=== PATIENT | male | born 1955 | race Caucasian/White ===

== ENCOUNTER 2023-01-07 08:15 | Inpatient (IN) ==
[2023-01-07] MEDS ORDERED: PANTOprazole 40 MG in SYRINGE 0 ML IV ONE (08:48)
[2023-01-07] MEDS ORDERED: SODIUM CHLORIDE 0.9% 1,000 ML IV STA (08:48)
--- NOTE | 2023-01-07 08:53 | Emergency Department Note ---
Impression & Plan GI bleed, Colitis ED Provider Note Diagnosis: GI bleed, colitis Disposition: Admission CHIEF COMPLAINT: GI bleed HPI: Patient is a 67-year-old male presenting with abdominal pain and GI bleed. Patient states his symptoms started last evening. Patient complains of left lower quadrant abdominal pain. Patient states he had 2 bowel movements with bright red blood present. Patient states his only anticoagulant is baby aspirin. Patient states the left lower quadrant pain was worse but is now very dull and 1-2 out of 10. Patient denies any nausea or vomiting. Patient denies any fevers. Patient states his only previous abdominal surgery was appendectomy. Patient states that he had a colonoscopy performed in September of this year where they removed polyps. PAST MEDICAL HISTORY: See Below PAST SURGICAL HISTORY: See Below SOCIAL HISTORY: See Below HOME MEDICATIONS: See Below ALLERGIES: See Below VITALS: See Below PHYSICAL EXAMINATION: GENERAL: Well appearing, well nourished, NAD, non-toxic. EYE EXAM: Normal conjunctiva. OROPHARYNX: Moist mucus membranes. Grossly normal dentition. NECK: Supple, LUNGS: Clear to auscultation. Normal chest wall mechanics. HEART: NSR ABDOMEN: Abdomen soft, mild tenderness left lower quadrant BACK: No CVA TTP. SKIN: No rashes and no bruising. UPPER EXTREMITIES: Upper extremities are grossly normal LOWER EXTREMITIES: Grossly normal, no edema. NEURO EXAM: A&O x3,, normal speech, moves all 4 extremities PSYCH: Cooperative MEDICAL DECISION MAKING: Reviewed external documents: [employer] note 10/20/2022 wrist injury History obtained from: Patient ER Course: Patient is a 67-year-old male presenting with left lower quadrant abdominal pain. Patient states that his last 2 bowel movements he has had bright red blood present. Patient states his only blood thinner is aspirin. Patient states continued left lower quadrant pain with nausea. Patient on rectal exam today has bright red blood and Hemoccult positive. Patient's hemoglobin starts out stable at 16. Patient has no tachycardia or hypotension. Patient CT scan of abdomen pelvis shows colitis and due to the bright red blood he was started on Cipro and Flagyl. Patient's case discussed with hospitalist service accepts patient further treatment and evaluation. Labs (independently interpreted) are significant for: Hemoglobin 16 Medications given: Normal saline bolus Consultants: Hospitalist service Triage Nursing notes reviewed and agree them. Vital Signs: reviewed and remarkable for: no significant abnormalities Past Med/Surg History Medical History (Updated 01/07/23 @ 13:[address] DO) HLD (hyperlipidemia) GERD (gastroesophageal reflux disease) No pertinent past medical history Surgical History (Updated 01/07/23 @ 11:53 by Crystal Mendoza PA-C) Hx of lymph node biopsy Left submandibular 02/21/2009 Hx of shoulder surgery 1999 S/P appendectomy 1979 Family History (Updated 01/07/23 @ 11:55 by Crystal Mendoza PA-C) Mother Lymphoma Father Pancreatic cancer Heart disease Social History Smoking Status: Former smoker Preferred Language: Kinyarwanda Feels Safe at Home: Yes Allergies Allergies Allergy/AdvReac Type Severity Reaction Status Date / Time Yglkars-XSH-KeA Reductase Allergy Severe Leg cramps Unverified 01/07/23 11:34 Inhibitor Penicillins Allergy Unknown . Verified 01/07/23 11:34 Home Meds Home Medications Medication Instructions Recorded Confirmed aspirin 81 mg tablet 81 mg PO QAM 01/07/23 01/07/23 ezetimibe 10 mg tablet 10 mg PO QAM 01/07/23 01/07/23 omeprazole 20 mg capsule,delayed 20 mg PO QAM 01/07/23 01/07/23 release Results & Data (ED) Vital Signs Vital Signs - 24 hr 01/07/23 08:18 01/07/23 09:18 01/07/23 09:21 Temperature 36.5 C Temperature Source Temporal Artery Scan Pulse Rate 79 70 Pulse Rate [Apical] 73 Respiratory Rate 20 18 Respiratory Effort / Characteristics Non-Labored Spontaneous Respiratory Depth Normal Respiratory Pattern Regular Blood Pressure 157/101 H Blood Pressure Mean 119 Blood Pressure Position Sitting Pulse Oximetry 95 98 Oxygen Delivery Method Room Air Room Air Sepsis Recent Fever Within 48 Hours No Sepsis New/Unexplained Change in Mental Status No Sepsis Action Taken by Nursing No Action Required Laboratory Data 01/07/23 08:59 01/07/23 08:59 Lab Results 01/07/23 Range/Units 08:59 WBC 6.82 (4.8-10.8) K/ul RBC 5.45 (4.70-6.10) M/uL Hgb 16.0 (14.0-18.0) g/dl Hct 48.0 (42.0-52.0) % MCV 88.1 (80.0-100.0) fL MCH 29.4 (25.0-34.0) pg MCHC 33.3 (32.0-36.0) g/dL RDW Std Deviation 46.0 (36.4-46.3) fL RDW Coeff of Nina 14.4 (11.5-14.5) % Plt Count 165 (130-400) K/uL MPV 11.1 (9.4-12.4) fL Immature Gran % (Auto) 0.4 % Neut % (Auto) 63.9 % Lymph % (Auto) 23.6 % [place] % (Auto) 8.7 % Eos % (Auto) 2.8 % Baso % (Auto) 0.6 % Neut # (Auto) 4.36 (1.40-6.50) K/uL Lymph # (Auto) 1.61 (1.20-3.40) K/uL [place] # (Auto) 0.59 (0.11-0.59) K/uL Eos # (Auto) 0.19 (0.00-0.50) K/uL Baso # (Auto) 0.04 (0.00-0.20) K/uL Immature Gran # (Auto) 0.03 (0.01-0.20) K/uL PT 10.3 (9.0-12.0) Seconds INR 0.9 (0.9-1.1) Sodium 138 (136-145) mmol/L Potassium 4.1 (3.5-5.1) mmol/L Chloride 107 (98-107) mmol/L Carbon Dioxide 25 (21-32) mmol/L Anion Gap 6 (3-11) BUN 16 (6-23) mg/dl Creatinine 1.02 (0.6-1.4) mg/dl Est Cr Clr Drug Dosing 71.2 ml/min Est GFR ( Amer) 88.4 ml/min Est GFR (Non-Af Amer) 76.2 ml/min BUN/Creatinine Ratio 15.7 (10-20) Glucose 90 (70-99(Fasting)) mg/dl Calcium 9.3 (8.6-10.3) mg/dl Total Bilirubin 0.8 (0.2-1.0) mg/dl AST 21 (13-39) U/L ALT 17 (7-52) U/L Alkaline Phosphatase 58 (34-104) U/L Total Protein 6.9 (6.0-8.3) gm/dl Albumin 4.2 (3.4-5.0) gm/dl Globulin 2.7 (2.5-4.0) gm/dl Albumin/Globulin Ratio 1.6 (0.9-2) Lipase 10 L (11-82) U/L Administered Medications Ciprofloxacin (Cipro / D5w) 400 mg in 200 mls @ 100 mls/hr IV NOW STA; Protocol Stop: 01/07/23 13:27 Last Admin: 01/07/23 11:41 Dose: 100 mls/hr Documented By: MAKENZIE Discontinued Medications Sodium Chloride (Nss) 1,000 mls @ 999 mls/hr IV .Q1H1M STA Stop: 01/07/23 09:48 Last Infusion: 01/07/23 10:07 Dose: Infused Documented By: Admin: 01/07/23 09:05 Dose: 999 mls/hr Documented By: MAKENZIE Pantoprazole Sodium 40 mg/ (Syringe) 10 mls @ 5 mls/min IV NOW ONE Stop: 01/07/23 08:49 Last Admin: 01/07/23 09:05 Dose: 5 mls/min Documented By: MAKENZIE Metronidazole (Flagyl) 500 mg in 100 mls @ 100 mls/hr IV NOW STA; Protocol Stop: 01/07/23 12:27 Last Infusion: 01/07/23 12:59 Dose: Infused Documented By: Admin: 01/07/23 11:41 Dose: 100 mls/hr Documented By: MAKENZIE Ioversol (Optiray 320 100ml) 93 ml IV ONCE ONE Stop: 01/07/23 10:11 Last Admin: 01/07/23 10:11 Dose: 93 ml Documented By: JOE Imaging Data Radiologist's Impression: Abdomen/Pelvis CT 01/07/23 08:48 CT OF THE ABDOMEN AND PELVIS WITH CONTRAST CLINICAL HISTORY: GI bleed, BRB per rectum x's 2 episodes COMPARISON STUDY: None. TECHNIQUE: Following IV administration of 93 mL of Optiray, axial images of the abdomen and pelvis were obtained from the lung bases to the proximal femurs. Images were reviewed in the axial, sagittal, and coronal planes. IV contrast was administered without complication. Automated exposure control was utilized for the study. A dose lowering technique was utilized adhering to the principles of ALARA. CT DOSE: 1171.81 mGy.cm FINDINGS: Lung bases are unremarkable. No pneumatosis, free air or portal venous gas is present. Subcentimeter lateral segment hepatic lesion is too small to characterize but favors a cyst. A few additional tiny hepatic lesions are likely benign. There is no biliary or pancreatic ductal dilatation. There are calcified granulomas within the spleen. Adrenal glands and kidneys are unremarkable. There is no hydronephrosis. There are no urinary calculi. The appendix is not visualized. There is no evidence for a bowel obstruction. There is mild wall thickening of the distal transverse colon, splenic flexure of the colon, descending colon and the sigmoid colon. There may be subtle stranding adjacent to the sigmoid colon. There is no fluid collection to suggest an abscess. There is no lymphadenopathy. Major vasculature is patent. There is moderate plaque within the abdominal aorta and branch vessels. No intraluminal bowel contrast is identified to suggest active GI bleed by CT on this study. IMPRESSION: 1. Mild left colon wall thickening with subtle pericolonic stranding. This favors a nonspecific colitis. Less likely, the findings could be related to underdistention. 2. No bowel obstruction. No intraluminal contrast to suggest active GI bleed by CT. ACT 112: Negative or not required by law. Electronically signed by: Dawson Brunson M.D. 01/07/2023 10:38 AM Discharge Plan Visit Data Chief Complaint: GI Assessment Stated Complaint: BLOODY STOOL,DOC REF ED Provider: Kyler Lane Discharge Problem: GI bleed, Colitis Forms Stand Alone Forms: [facility] [employer] Prescriptions Prescriptions: No Action omeprazole 20 mg capsule,delayed release(DR/EC) 20 mg PO QAM aspirin 81 mg Tablet 81 mg PO QAM ezetimibe 10 mg tablet 10 mg PO QAM Referrals Referrals: Dianne Underwood MD [Primary Care Provider] -
[2023-01-07 09:40] LABS: Basophils # (auto) 0.04 K/uL (0.00-0.20); Basophils % (auto) 0.6 %; Eosinophils # (auto) 0.19 K/uL (0.00-0.50); Eosinophils % (auto) 2.8 %; Immature Granulocytes # (auto) 0.03 K/uL (0.01-0.20); Immature Granulocytes % (auto) 0.4 %; Lymphocytes # (auto) 1.61 K/uL (1.20-3.40); Lymphocytes % (auto) 23.6 %; Mean Corpuscular Hemoglobin 29.4 pg (25.0-34.0); Mean Corpuscular Hgb Conc 33.3 g/dL (32.0-36.0); Mean Corpuscular Volume 88.1 fL (80.0-100.0); Mean Platelet Volume 11.1 fL (9.4-12.4); Monocytes # (auto) 0.59 K/uL (0.11-0.59); Monocytes % (auto) 8.7 %; Neutrophils # (auto) 4.36 K/uL (1.40-6.50); Neutrophils % (auto) 63.9 %; Platelet Count 165 K/uL (130-400); RDW Coefficient of Variation 14.4 % (11.5-14.5); Red Blood Count 5.45 M/uL (4.70-6.10); White Blood Count 6.82 K/ul (4.8-10.8)
[2023-01-07 09:44] LABS: Albumin Globulin Ratio 1.6 (0.9-2); Albumin Level 4.2 gm/dl (3.4-5.0); BUN Creatinine Ratio 15.7 (10-20); Bilirubin,Total 0.8 mg/dl (0.2-1.0); Calcium 9.3 mg/dl (8.6-10.3); Creatinine Clr Calc Pharmacy 71.2 ml/min; Est GFR (African American) 88.4 ml/min; Est GFR (Non-African American) 76.2 ml/min; Globulin 2.7 gm/dl (2.5-4.0); Potassium 4.1 mmol/L (3.5-5.1); Total Protein 6.9 gm/dl (6.0-8.3)
[2023-01-07 09:53] LABS: INR 0.9 (0.9-1.1); Prothrombin Time 10.3 Seconds (9.0-12.0)
[2023-01-07] MEDS ORDERED: OPTIRAY 320 100ml IV ONE (10:10)
--- NOTE | 2023-01-07 10:39 | CT Scan Report ---
CT OF THE ABDOMEN AND PELVIS WITH CONTRAST CLINICAL HISTORY: GI bleed, BRB per rectum x's 2 episodes COMPARISON STUDY: None. TECHNIQUE: Following IV administration of 93 mL of Optiray, axial images of the abdomen and pelvis we re obtained from the lung bases to the proximal femurs. Images were reviewed in the axial, sagittal, and coronal planes. IV contrast was administered without complication. Automated exposure control wa s utilized for the study. A dose lowering technique was utilized adhering to the principles of ALARA . CT DOSE: 1171.81 mGy.cm FINDINGS: Lung bases are unremarkable. No pneumatosis, free air or portal venous gas is present. Subc entimeter lateral segment hepatic lesion is too small to characterize but favors a cyst. A few additi onal tiny hepatic lesions are likely benign. There is no biliary or pancreatic ductal dilatation. The re are calcified granulomas within the spleen. Adrenal glands and kidneys are unremarkable. There is no hydronephrosis. There are no urinary calculi. The appendix is not visualized. There is no evidence for a bowel obstruction. There is mild wall thickening of the distal transverse colon, splenic flexu re of the colon, descending colon and the sigmoid colon. There may be subtle stranding adjacent to th e sigmoid colon. There is no fluid collection to suggest an abscess. There is no lymphadenopathy. Lefty or vasculature is patent. There is moderate plaque within the abdominal aorta and branch vessels. No intraluminal bowel contrast is identified to suggest active GI bleed by CT on this study. IMPRESSION: 1. Mild left colon wall thickening with subtle pericolonic stranding. This favors a nonspecific colit is. Less likely, the findings could be related to underdistention. 2. No bowel obstruction. No intraluminal contrast to suggest active GI bleed by CT. ACT 112: Negative or not required by law. Electronically signed by: Dawson Brunson M.D. 01/07/2023 10:38 AM
[2023-01-07] MEDS ORDERED: CIPROFLOXACIN / D5W 400 MG/200 ML BAG IV STA (11:28)
[2023-01-07] MEDS ORDERED: metroNIDAZOLE 500 MG/100 ML BAG IV STA (11:28)
--- NOTE | 2023-01-07 11:56 | History & Physical Report ---
Date of Service January 07, 2023 Assessment & Plan (1) Colitis: (2) BRBPR (bright red blood per rectum): (3) HLD (hyperlipidemia): (4) GERD (gastroesophageal reflux disease): Plan: This is a 67-year-old male with PMHx of HLD, GERD, history of colonoscopy in September with removal of 2 polyps which are noted on outpatient epic review to be hyperplastic, who presents to the ER with acute onset of abdominal pain within the past 24 hours and development of bright red blood per rectum x2 to episodes today. He is on baby aspirin but no other form of blood thinner. Colitis GI bleed -Admit to med telemetry -Hemoglobin is 16, trend every 6 hour -Afebrile, WBC 6.82 on admission -LR at 80 mL/h for gentle hydration while he is n.p.o. -CT abdomen and pelvis reviewed showing : . Mild left colon wall thickening with subtle pericolonic stranding. This favors a nonspecific colitis. -Started on Cipro and Flagyl IV in the ER, will continue -Consult GI, patient had colonoscopy in September this year with Dr. Denton where 2 polyps were removed, hyperplastic on reports reviewed in [facility] outpatient chart personally - pantoprazole 40 mg daily IV HLD -Patient is statin intolerant, continue Zetia GERD -Continue PPI IV as above DVT PPx: teds, scds Lines: 2 PIV FEN/GI: N.p.o., LR at 80 mL/h CODE: Full code Dispo: From home, likely to remain in the hospital x 1-2 days, pending GI consultation and possible scope. History of Present Illness Chief Complaint: Abdominal pain, BRBPR Primary Care Provider: Dianne Underwood MD This is a 67-year-old male with PMHx of HLD, GERD, history of colonoscopy in September with removal of 2 polyps which are noted on outpatient epic review to be hyperplastic, who presents to the ER with acute onset of abdominal pain within the past 24 hours and development of bright red blood per rectum x2 to episodes today. He is on baby aspirin but no other form of blood thinner. Patient is here with his at bedside. States that he had 12 episodes of diarrhea yesterday, and developed some lower abdominal pain last evening. He awoke before daylight this morning with a bowel movement that had bright red blood in it. Since then he has had 3 more bowel movements with mostly bright red blood and some clotting in it. He denies any nausea, vomiting, lightheadedness or dizziness. Yesterday patient ate 2 donuts in the morning but nothing else all day. He denies any recent illnesses, consumption of raw or undercooked foods, spoiled foods, but admits that he is on well water. His denies any similar symptoms. Patient has never experienced any GI bleed like this before. Currently has slight lower abdominal pain but no other acute complaints. Allergies Allergy/AdvReac Type Severity Reaction Status Date / Time Ugbdmap-OFL-ScM Reductase Allergy Severe Leg cramps Unverified 01/07/23 11:34 Inhibitor Penicillins Allergy Unknown . Verified 01/07/23 11:34 Home Medications Medication Instructions Recorded Confirmed Type aspirin 81 mg tablet 81 mg PO QAM 01/07/23 01/07/23 History ezetimibe 10 mg tablet 10 mg PO QAM 01/07/23 01/07/23 History omeprazole 20 mg capsule,delayed 20 mg PO QAM 01/07/23 01/07/23 History release Past Med/Surg History Medical History (Updated 01/07/23 @ 12:02 by Crystal Mendoza PA-C) HLD (hyperlipidemia) GERD (gastroesophageal reflux disease) No pertinent past medical history Surgical History (Updated 01/07/23 @ 11:53 by Crystal Mendoza PA-C) Hx of lymph node biopsy Left submandibular 02/21/2009 Hx of shoulder surgery 1999 S/P appendectomy 1979 Family History (Updated 01/07/23 @ 11:55 by Crystal Mendoza PA-C) Mother Lymphoma Father Pancreatic cancer Heart disease Social History Smoking Status: Former smoker Preferred Language: Argentine Feels Safe at Home: Yes Review of Systems Review of Systems: Constitutional: No fever, sweats or chills Eyes: No diplopia, no worsening or blurred vision ENT: normal hearing, no trouble swallowing Respiratory: No cough, sputum, dyspnea at rest or on exertion Cardiovascular: No chest pain, tightness or palpitations Abdomen: As per HPI Musculoskeletal: No joint pain, calf pain, swelling Neurologic: No weakness, numbness/tingling, or balance problems Psychiatric: No anxiety or depression Skin: No rash or itch Physical Exam Physical Exam: General: awake, alert, no apparent distress Head: Normocephalic, atraumatic ENT: PERRL, EOMI, no pharyngeal exudate, mucous membranes moist Chest: Clear to auscultation, on room air, no adventitious breath sounds Cardiac: Regular rate and rhythm, no murmur, no JVD, normal peripheral pulses, good capillary refill Abdominal: NABS x 4 quadrants, soft, nondistended, minimally tender to palpation in left lower quadrant, no rebound or guarding Extremities: Normal inspection, no peripheral edema or erythema, calfs nontender to palpation Psych: Normal mood and affect Neuro: AAO x 3, strength intact bilaterally and rated 5/5, no motor deficits, speech is clear, no peripheral sensory deficits Results & Data Results & Data Vital Signs (Past 12 Hours) Vital Signs Temp Pulse Pulse Resp BP Pulse Ox O2 Del Method 01/07/23 09:21 73 18 98 Room Air 01/07/23 09:18 70 01/07/23 08:18 36.5 C 79 20 157/101 H 95 Room Air Laboratory Results 01/07/23 08:59 WBC 6.82 RBC 5.45 Hgb 16.0 Hct 48.0 MCV 88.1 MCH 29.4 MCHC 33.3 RDW Std Deviation 46.0 RDW Coeff of Nina 14.4 Plt Count 165 MPV 11.1 Immature Gran % (Auto) 0.4 Neut % (Auto) 63.9 Lymph % (Auto) 23.6 [place] % (Auto) 8.7 Eos % (Auto) 2.8 Baso % (Auto) 0.6 Neut # (Auto) 4.36 Lymph # (Auto) 1.61 [place] # (Auto) 0.59 Eos # (Auto) 0.19 Baso # (Auto) 0.04 Immature Gran # (Auto) 0.03 PT 10.3 INR 0.9 Sodium 138 Potassium 4.1 Chloride 107 Carbon Dioxide 25 Anion Gap 6 BUN 16 Creatinine 1.02 Est Cr Clr Drug Dosing 71.2 Est GFR ( Amer) 88.4 Est GFR (Non-Af Amer) 76.2 BUN/Creatinine Ratio 15.7 Glucose 90 Calcium 9.3 Total Bilirubin 0.8 AST 21 ALT 17 Alkaline Phosphatase 58 Total Protein 6.9 Albumin 4.2 Globulin 2.7 Albumin/Globulin Ratio 1.6 Lipase 10 L Diagnostic Findings Abdomen/Pelvis CT 01/07/23 08:48 CT OF THE ABDOMEN AND PELVIS WITH CONTRAST CLINICAL HISTORY: GI bleed, BRB per rectum x's 2 episodes COMPARISON STUDY: None. TECHNIQUE: Following IV administration of 93 mL of Optiray, axial images of the abdomen and pelvis were obtained from the lung bases to the proximal femurs. Images were reviewed in the axial, sagittal, and coronal planes. IV contrast was administered without complication. Automated exposure control was utilized for the study. A dose lowering technique was utilized adhering to the principles of ALARA. CT DOSE: 1171.81 mGy.cm FINDINGS: Lung bases are unremarkable. No pneumatosis, free air or portal venous gas is present. Subcentimeter lateral segment hepatic lesion is too small to characterize but favors a cyst. A few additional tiny hepatic lesions are likely benign. There is no biliary or pancreatic ductal dilatation. There are calcified granulomas within the spleen. Adrenal glands and kidneys are unremarkable. There is no hydronephrosis. There are no urinary calculi. The appendix is not visualized. There is no evidence for a bowel obstruction. There is mild wall thickening of the distal transverse colon, splenic flexure of the colon, de scending colon and the sigmoid colon. There may be subtle stranding adjacent to the sigmoid colon. There is no fluid collection to suggest an abscess. There is no lymphadenopathy. Major vasculature is patent. There is moderate plaque within the abdominal aorta and branch vessels. No intraluminal bowel contrast is identified to suggest active GI bleed by CT on this study. IMPRESSION: 1. Mild left colon wall thickening with subtle pericolonic stranding. This favors a nonspecific colitis. Less likely, the findings could be related to underdistention. 2. No bowel obstruction. No intraluminal contrast to suggest active GI bleed by CT. ACT 112: Negative or not required by law. Electronically signed by: Dawson Brunson M.D. 01/07/2023 10:38 AM Code Status & VTE Plan Code Status Full code-discussed with the patient at bedside Supervising Physician Co-Signing Physician Notes Attending addendum: The patient was seen and examined in emergency room He has been complaining of bright red blood per rectum quite a few times since last evening associated with lower abdominal pain without any nausea or vomiting Denies any other symptoms during my examination On examination Lying in bed with minimal discomfort Hemodynamically stable with increased BP at 157/101 Chestclear to auscultate bilaterally Abdomenmildly distended, tender in the hypogastric area, bowel sound present HeartS1, S2 regular Extremitiesno edema His admission labs, imaging studies and medications reviewed CT of the abdomen did not show mild colitis involving the mid colon area Has been having hematochezia We will get serial hemoglobin and GI evaluation Agree with assessment and plan as outlined above by Crystal urbina PA-C
[2023-01-07] MEDS ORDERED: ONDANSETRON INJ 2 MG/ML 2 ML VIAL IV PRN (15:46)
[2023-01-07] MEDS ORDERED: ACETAMINOPHEN 325 MG TAB PO PRN (15:46)
[2023-01-07] MEDS ORDERED: LACTATED RINGER'S 1,000 ML IV SCH (15:46)
[2023-01-07 16:19] LABS: Hemoglobin 15.4 g/dl (14.0-18.0)
[2023-01-07] MEDS: PANTOprazole 40 MG in SYRINGE 0 ML IV SCH (17:59)
[2023-01-07] MEDS: metroNIDAZOLE 500 MG/100 ML BAG IV SCH (19:50)
[2023-01-07 23:00] LABS: Hematocrit (blood only) 41.8 % (42.0-52.0); Hemoglobin 14.5 g/dl (14.0-18.0)
[2023-01-07] MEDS: CIPROFLOXACIN / D5W 400 MG/200 ML BAG IV SCH (23:09)
[2023-01-08] MEDS: metroNIDAZOLE 500 MG/100 ML BAG IV SCH ×3 (04:00→19:44)
[2023-01-08 06:20] LABS: Hematocrit (blood only) 44.4 % (42.0-52.0); Hemoglobin 15.3 g/dl (14.0-18.0); Mean Corpuscular Hemoglobin 29.7 pg (25.0-34.0); Mean Corpuscular Hgb Conc 34.5 g/dL (32.0-36.0); Mean Platelet Volume 10.5 fL (9.4-12.4); Platelet Count 156 K/uL (130-400); RDW Standard Deviation 44.6 fL (36.4-46.3); Red Blood Count 5.16 M/uL (4.70-6.10); White Blood Count 6.48 K/ul (4.8-10.8)
[2023-01-08 07:25] LABS: Calcium 8.9 mg/dl (8.6-10.3)
[2023-01-08 07:31] LABS: BUN Creatinine Ratio 10.8 (10-20); Creatinine Clr Calc Pharmacy 71.2 ml/min; Est GFR (African American) 88.4 ml/min; Est GFR (Non-African American) 76.2 ml/min
[2023-01-08] MEDS ORDERED: SODIUM CHLORIDE 0.9% 250 ML IV PRN (08:33)
[2023-01-08] MEDS: EZETIMIBE 10 MG TAB PO SCH (08:38)
[2023-01-08] MEDS ORDERED: LACTATED RINGER'S 1,000 ML IV SCH (08:45)
--- NOTE | 2023-01-08 10:13 | Gastrointestinal Consultation ---
Date of Consultation January 08, 2023 Assessment & Plan (1) Colitis: (2) BRBPR (bright red blood per rectum): Symptoms have completely resolved Advance to clear liquid diet now No plans for inpatient endoscopic workup Symptoms may be due to gastroenteritis vs. hemorrhoids vs. ischemic colitis History of Present Illness Reason for Consultation: Colitis Attending Physician: Michael Feldman MD History of Present Illness Kaitlin Chery is a 67 yo CM who presented to the ER overnight with complaints of abdominal pain and 2 episodes of BRBPR. 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 He denies any episodes of lightheadedness, dizziness, chest pain or diaphoresis in the preceding time to his abdominal pain. Upon arrival to the ER he was hemodynamically stable with an H/H of 15.3/44.4. He was given IVF and underwent a CT abd/pelvis which showed some left colonic wall thickening. He states he last underwent a colonoscopy with [facility] in September 2022, and was noted to have 2 small hyperplastic polyps and some hemorrhoids, but no other significant findings. Since his arrival, he notes a significant improvement in his abdominal pain, and has not had any further BM's. He denies any fevers, chills, nausea, vomiting, hematemesis, or melena. He is inquiring about eating. He has no further complaints. Allergies Allergy/AdvReac Type Severity Reaction Status Date / Time Vkfnhhd-RHH-AwM Reductase Allergy Severe Leg cramps Unverified 01/07/23 11:34 Inhibitor Penicillins Allergy Unknown . Verified 01/07/23 11:34 Home Medications Medication Instructions Recorded Confirmed Type aspirin 81 mg tablet 81 mg PO QAM 01/07/23 01/07/23 History ezetimibe 10 mg tablet 10 mg PO QAM 01/07/23 01/07/23 History omeprazole 20 mg capsule,delayed 20 mg PO QAM 01/07/23 01/07/23 History release Patient History Medical History HLD (hyperlipidemia) GERD (gastroesophageal reflux disease) No pertinent past medical history Surgical History Hx of lymph node biopsy Left submandibular 02/21/2009 Hx of shoulder surgery 1999 S/P appendectomy 1980 Family History Mother Lymphoma Father Pancreatic cancer Heart disease Social History Smoking Status: Never smoker Second Hand Exposure: No; Do You Dip or Chew Tobacco: No; Tobacco Cessation Education Requested by Patient: No Hx Alcohol Use: Yes Alcohol type: hard liquor Hx Substance Use: No Preferred Language: Malay Communication Ability: Effective Nurse Assistant Required: No Beliefs That Will Affect Care: None Current Living Situation: Spouse Other Information That Helps Us Care for You: No Feels Safe at Home: Yes Safety Concerns: Feels Safe At This Time Assistive Devices: Glasses Review of Systems Review of Systems: All systems reviewed & are unremarkable except as noted in Subjective Physical Exam Constitutional: WD/WN, vitals as above Respiratory: normal respiratory effort, lungs clear to auscultation Cardiovascular: RRR, no murmur, no edema Gastrointestinal (Abdomen): normal bowel sounds, soft, nontender, no hepatosplenomegaly Skin: no rashes, warm and dry Psychiatric: A+Ox3, euthymic affect Results & Data Vital Signs (Past 12 Hours) Vital Signs Temp Pulse Pulse Resp BP Pulse Ox O2 Del Method 01/08/23 07:33 37.0 C 66 16 131/78 97 Room Air 01/08/23 06:53 65 01/08/23 03:09 36.6 C 69 18 124/84 94 Room Air 01/07/23 22:57 64 01/07/23 22:50 36.7 C 62 16 106/51 L 95 Room Air PG Care Time/CCT Total # of Minutes Spent Total Time Spent with Patient: Total time spent is greater than 50% in coordination of care (as documented) at patient's floor/unit and/or counseling patient: Coding Level of Care Code 61831 IN/OBS CONSULT LVL 4,60M Diagnoses Colitis K52.9 BRBPR (bright red blood per rectum) K62.5
[2023-01-08] MEDS: PANTOprazole 40 MG in SYRINGE 0 ML IV SCH (12:19)
[2023-01-08] MEDS: CIPROFLOXACIN / D5W 400 MG/200 ML BAG IV SCH ×2 (12:50→23:06)
--- NOTE | 2023-01-08 16:18 | Hospitalist Progress Note ---
Date of Service January 08, 2023 Assessment & Plan (1) Colitis: (2) BRBPR (bright red blood per rectum): (3) HLD (hyperlipidemia): (4) GERD (gastroesophageal reflux disease): Plan: Patient is a 67 yr male with H/O HLD, GERD, history of colonoscopy in September with removal of 2 polyps which are noted on outpatient epic review to be hyperplastic, who presents to the ER with acute onset of abdominal pain within the past 24 hours and development of bright red blood per rectum x2 to episodes today. He is on baby aspirin but no other form of blood thinner. Colitis GI bleed/rectal bleed DD: Gastroenteritis/hemorrhoids/ischemic colitis --CT ABD: Mild left colon wall thickening with subtle pericolonic stranding. This favors a nonspecific colitis. Less likely, the findings could be related to underdistention. No bowel obstruction. No intraluminal contrast to suggest active GI bleed by CT. --Hold aspirin -- Empirically started on antibiotic Check stool studies if with recurrence of diarrhea Monitor H&H and transfuse as needed Appreciate GI input May need colonoscopy as outpatient Clear liquid diet today HLD -Patient is statin intolerant, continue Zetia GERD -Continue PPI DVT Px: Teds, SCDs CODE STATUS: Full code Admission and Anticipated Discharge Date Admission Date: January 07, 2023 Subjective Patient is seen and examined at bedside Reports having minimal bleeding this morning with bowel movement Denies any nausea, vomiting, abdominal pain Also denies any chest pain, dyspnea No other complaints Review of Systems Review of Systems: All systems reviewed & are unremarkable except as noted in Subjective Physical Exam Physical Exam: Physical Exam: Vitals signs as noted above General Appearance:Moderately built and nourished, no apparent distress Head: normocephalic, Atraumatic Eyes: normal inspection, EOMI Neck: supple, Trachea midline Respiratory/Chest: Normal breath sounds, CTA, No accessory muscle use Cardiovascular: S1, S2, No murmur Abdomen/GI:Soft, Non tender, Bowel sounds present Extremities/Musculoskeletal:normal inspection, no edema Neurologic/Psych:AAOX3, grossly no focal neurological deficits Skin: normal color, warm Results & Data Results & Data Vital Signs (Past 12 Hours) Vital Signs Temp Pulse Pulse Resp BP Pulse Ox O2 Del Method 01/08/23 15:35 37.0 C 74 16 146/88 H 94 Room Air 01/08/23 11:51 36.8 C 54 L 16 145/89 H 97 Room Air 01/08/23 07:33 37.0 C 66 16 131/78 97 Room Air 01/08/23 06:53 65 Laboratory Results Short CBC 01/07/23 01/07/23 01/08/23 Range/Units 15:55 22:40 06:02 WBC 6.48 (4.8-10.8) K/ul Hgb 15.4 14.5 15.3 (14.0-18.0) g/dl Hct 45.0 41.8 L 44.4 (42.0-52.0) % Plt Count 156 (130-400) K/uL BMP 01/08/23 06:02 Sodium 138 Potassium 4.0 Chloride 107 Carbon Dioxide 24 BUN 11 Creatinine 1.02 Glucose 87 Calcium 8.9
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
[2023-01-08 20:26] LABS: Hematocrit (blood only) 42.1 % (42.0-52.0); Hemoglobin 14.7 g/dl (14.0-18.0)
[2023-01-09] MEDS: metroNIDAZOLE 500 MG/100 ML BAG IV SCH ×2 (03:31→11:19)
[2023-01-09] MEDS: EZETIMIBE 10 MG TAB PO SCH (07:21)
[2023-01-09 07:26] LABS: Hematocrit (blood only) 46.5 % (42.0-52.0); Hemoglobin 15.7 g/dl (14.0-18.0); Mean Corpuscular Hemoglobin 29.6 pg (25.0-34.0); Mean Corpuscular Hgb Conc 33.8 g/dL (32.0-36.0); Mean Corpuscular Volume 87.6 fL (80.0-100.0); Mean Platelet Volume 11.3 fL (9.4-12.4); Platelet Count 162 K/uL (130-400); Red Blood Count 5.31 M/uL (4.70-6.10); White Blood Count 6.81 K/ul (4.8-10.8)
[2023-01-09 07:45] LABS: BUN Creatinine Ratio 9.6 (10-20); Calcium 8.8 mg/dl (8.6-10.3); Creatinine Clr Calc Pharmacy 69.9 ml/min; Est GFR (African American) 86.3 ml/min; Est GFR (Non-African American) 74.5 ml/min; Magnesium 1.9 mg/dl (1.7-2.4)
[2023-01-09] MEDS: PANTOprazole 40 MG in SYRINGE 0 ML IV SCH (11:19)
[2023-01-09] MEDS: CIPROFLOXACIN / D5W 400 MG/200 ML BAG IV SCH (13:01)
--- NOTE | 2023-01-09 13:44 | Hospitalist Progress Note ---
Date of Service January 09, 2023 Assessment & Plan (1) Colitis: (2) BRBPR (bright red blood per rectum): (3) HLD (hyperlipidemia): (4) GERD (gastroesophageal reflux disease): Plan: Patient is a 67 yr male with H/O HLD, GERD, history of colonoscopy in September with removal of 2 polyps which are noted on outpatient epic review to be hyperplastic, who presents to the ER with acute onset of abdominal pain within the past 24 hours and development of bright red blood per rectum x2 to episodes today. He is on baby aspirin but no other form of blood thinner. Colitis GI bleed/rectal bleed DD: Gastroenteritis/hemorrhoids/ischemic colitis --CT ABD: Mild left colon wall thickening with subtle pericolonic stranding. This favors a nonspecific colitis. Less likely, the findings could be related to underdistention. No bowel obstruction. No intraluminal contrast to suggest active GI bleed by CT. --Hold aspirin (plan to discontinue upon discharge given no clear indication) -- Empirically antibiotics--Cipro, Flagyl will be discontinued Check stool studies if with recurrence of diarrhea--no recurrence of diarrhea while hospitalized Monitor H&H and transfuse as needed Appreciate GI input Needs colonoscopy as outpatient Discussed with GI on 01/09/2023: Can discontinue antibiotics, hold aspirin for now, recommends outpatient colonoscopy. Tolerated low fiber diet Hemoglobin stable Plan to be discharged home today HLD -Patient is statin intolerant, continue Zetia GERD -Continue PPI DVT Px: Teds, SCDs CODE STATUS: Full code Disposition Home Admission and Anticipated Discharge Date Admission Date: January 07, 2023 Subjective Patient is seen and examined at bedside No recurrence of bleeding today Tolerated low fiber diet Discussed with GI today Denies any nausea, vomiting, abdominal pain, chest pain, dyspnea Plan to discharge home today Review of Systems Review of Systems: All systems reviewed & are unremarkable except as noted in Subjective Physical Exam Physical Exam: Physical Exam: Vitals signs as noted above General Appearance:Moderately built and nourished, no apparent distress Head: normocephalic, Atraumatic Eyes: normal inspection, EOMI Neck: supple, Trachea midline Respiratory/Chest: Normal breath sounds, CTA, No accessory muscle use Cardiovascular: S1, S2, No murmur Abdomen/GI:Soft, Non tender, Bowel sounds present Extremities/Musculoskeletal:normal inspection, no edema Neurologic/Psych:AAOX3, grossly no focal neurological deficits Skin: normal color, warm Results & Data Results & Data Vital Signs (Past 12 Hours) Vital Signs Temp Pulse Pulse Resp BP Pulse Ox O2 Del Method 01/09/23 11:48 37.1 C 71 16 144/95 H 94 Room Air 01/09/23 07:34 37.0 C 61 16 127/84 95 Room Air 01/09/23 07:05 66 01/09/23 03:08 36.7 C 69 16 114/75 97 Room Air Laboratory Results Short CBC 01/08/23 01/09/23 Range/Units 20:09 06:30 WBC 6.81 (4.8-10.8) K/ul Hgb 14.7 15.7 (14.0-18.0) g/dl Hct 42.1 46.5 (42.0-52.0) % Plt Count 162 (130-400) K/uL BMP 01/09/23 06:30 Sodium 138 Potassium 4.0 Chloride 108 H Carbon Dioxide 24 BUN 10 Creatinine 1.04 Glucose 93 Calcium 8.8
--- NOTE | 2023-01-09 13:51 | Discharge Summary ---
Date of Service January 09, 2023 Admission HPI Per Admitting Provider This is a 67-year-old male with PMHx of HLD, GERD, history of colonoscopy in September with removal of 2 polyps which are noted on outpatient epic review to be hyperplastic, who presents to the ER with acute onset of abdominal pain within the past 24 hours and development of bright red blood per rectum x2 to episodes today. He is on baby aspirin but no other form of blood thinner. Patient is here with his at bedside. States that he had 12 episodes of diarrhea yesterday, and developed some lower abdominal pain last evening. He awoke before daylight this morning with a bowel movement that had bright red blood in it. Since then he has had 3 more bowel movements with mostly bright red blood and some clotting in it. He denies any nausea, vomiting, lightheadedness or dizziness. Yesterday patient ate 2 donuts in the morning but nothing else all day. He denies any recent illnesses, consumption of raw or undercooked foods, spoiled foods, but admits that he is on well water. His denies any similar symptoms. Patient has never experienced any GI bleed like this before. Currently has slight lower abdominal pain but no other acute complaints. Admission Exam Per Admitting Provider General: awake, alert, no apparent distress Head: Normocephalic, atraumatic ENT: PERRL, EOMI, no pharyngeal exudate, mucous membranes moist Chest: Clear to auscultation, on room air, no adventitious breath sounds Cardiac: Regular rate and rhythm, no murmur, no JVD, normal peripheral pulses, good capillary refill Abdominal: NABS x 4 quadrants, soft, nondistended, minimally tender to palpation in left lower quadrant, no rebound or guarding Extremities: Normal inspection, no peripheral edema or erythema, calfs nontender to palpation Psych: Normal mood and affect Neuro: AAO x 3, strength intact bilaterally and rated 5/5, no motor deficits, speech is clear, no peripheral sensory deficits Principal Diagnosis GI bleed/rectal bleed Possible colitis Discharge Data Allergies Allergy/AdvReac Type Severity Reaction Status Date / Time Cethiyx-QOA-JrO Reductase Allergy Severe Leg cramps Unverified 01/07/23 11:34 Inhibitor Penicillins Allergy Unknown . Verified 01/07/23 11:34 Consultations 01/07/23 11:48 ED Decision to Admit Stat 01/07/23 12:01 Consult Gastroenterology Routine Procedures Performed Laboratory Results WBC 6.81 K/ul (4.8-10.8) 01/09/23 06:30 RBC 5.31 M/uL (4.70-6.10) 01/09/23 06:30 Hgb 15.7 g/dl (14.0-18.0) 01/09/23 06:30 Hct 46.5 % (42.0-52.0) 01/09/23 06:30 MCV 87.6 fL (80.0-100.0) 01/09/23 06:30 MCH 29.6 pg (25.0-34.0) 01/09/23 06:30 MCHC 33.8 g/dL (32.0-36.0) 01/09/23 06:30 RDW Std Deviation 45.0 fL (36.4-46.3) 01/09/23 06:30 RDW Coeff of Nina 14.0 % (11.5-14.5) 01/09/23 06:30 Plt Count 162 K/uL (130-400) 01/09/23 06:30 MPV 11.3 fL (9.4-12.4) 01/09/23 06:30 Immature Gran % (Auto) 0.4 % 01/07/23 08:59 Neut % (Auto) 63.9 % 01/07/23 08:59 Lymph % (Auto) 23.6 % 01/07/23 08:59 Wells % (Auto) 8.7 % 01/07/23 08:59 Eos % (Auto) 2.8 % 01/07/23 08:59 Baso % (Auto) 0.6 % 01/07/23 08:59 Neut # (Auto) 4.36 K/uL (1.40-6.50) 01/07/23 08:59 Lymph # (Auto) 1.61 K/uL (1.20-3.40) 01/07/23 08:59 Wells # (Auto) 0.59 K/uL (0.11-0.59) 01/07/23 08:59 Eos # (Auto) 0.19 K/uL (0.00-0.50) 01/07/23 08:59 Baso # (Auto) 0.04 K/uL (0.00-0.20) 01/07/23 08:59 Immature Gran # (Auto) 0.03 K/uL (0.01-0.20) 01/07/23 08:59 PT 10.3 Seconds (9.0-12.0) 01/07/23 08:59 INR 0.9 (0.9-1.1) 01/07/23 08:59 Sodium 138 mmol/L (136-145) 01/09/23 06:30 Potassium 4.0 mmol/L (3.5-5.1) 01/09/23 06:30 Chloride 108 mmol/L (98-107) H 01/09/23 06:30 Carbon Dioxide 24 mmol/L (21-32) 01/09/23 06:30 Anion Gap 6 (3-11) 01/09/23 06:30 BUN 10 mg/dl (6-23) 01/09/23 06:30 Creatinine 1.04 mg/dl (0.6-1.4) 01/09/23 06:30 Est Cr Clr Drug Dosing 69.9 ml/min 01/09/23 06:30 Est GFR ( Amer) 86.3 ml/min 01/09/23 06:30 Est GFR (Non-Af Amer) 74.5 ml/min 01/09/23 06:30 BUN/Creatinine Ratio 9.6 (10-20) L 01/09/23 06:30 Glucose 93 mg/dl (70-99(Fasting)) 01/09/23 06:30 Calcium 8.8 mg/dl (8.6-10.3) 01/09/23 06:30 Magnesium 1.9 mg/dl (1.7-2.4) 01/09/23 06:30 Total Bilirubin 0.8 mg/dl (0.2-1.0) 01/07/23 08:59 AST 21 U/L (13-39) 01/07/23 08:59 ALT 17 U/L (7-52) 01/07/23 08:59 Alkaline Phosphatase 58 U/L (34-104) 01/07/23 08:59 Total Protein 6.9 gm/dl (6.0-8.3) 01/07/23 08:59 Albumin 4.2 gm/dl (3.4-5.0) 01/07/23 08:59 Globulin 2.7 gm/dl (2.5-4.0) 01/07/23 08:59 Albumin/Globulin Ratio 1.6 (0.9-2) 01/07/23 08:59 Lipase 10 U/L (11-82) L 01/07/23 08:59 Blood Type B Negative 01/08/23 06:02 Antibody Screen NEGATIVE 01/08/23 06:02 Crossmatch See Detail 01/08/23 06:02 Impressions Abdomen/Pelvis CT 01/07/23 08:48 CT OF THE ABDOMEN AND PELVIS WITH CONTRAST CLINICAL HISTORY: GI bleed, BRB per rectum x's 2 episodes COMPARISON STUDY: None. TECHNIQUE: Following IV administration of 93 mL of Optiray, axial images of the abdomen and pelvis were obtained from the lung bases to the proximal femurs. Images were reviewed in the axial, sagittal, and coronal planes. IV contrast was administered without complication. Automated exposure control was utilized for the study. A dose lowering technique was utilized adhering to the principles of ALARA. CT DOSE: 1171.81 mGy.cm FINDINGS: Lung bases are unremarkable. No pneumatosis, free air or portal venous gas is present. Subcentimeter lateral segment hepatic lesion is too small to characterize but favors a cyst. A few additional tiny hepatic lesions are likely benign. There is no biliary or pancreatic ductal dilatation. There are calcified granulomas within the spleen. Adrenal glands and kidneys are unremarkable. There is no hydronephrosis. There are no urinary calculi. The appendix is not visualized. There is no evidence for a bowel obstruction. There is mild wall thickening of the distal transverse colon, splenic flexure of the colon, descending colon and the sigmoid colon. There may be subtle stranding adjacent to the sigmoid colon. There is no fluid collection to suggest an abscess. There is no lymphadenopathy. Major vasculature is patent. There is moderate plaque within the abdominal aorta and branch vessels. No intraluminal bowel contrast is identified to suggest active GI bleed by CT on this study. IMPRESSION: 1. Mild left colon wall thickening with subtle pericolonic stranding. This favors a nonspecific colitis. Less likely, the findings could be related to underdistention. 2. No bowel obstruction. No intraluminal contrast to suggest active GI bleed by CT. ACT 112: Negative or not required by law. Electronically signed by: Dawson Brunson M.D. 01/07/2023 10:38 AM Ordered Studies 01/07/23 08:48 CT abd pelvis IV con only Stat Hospital Course (1) Colitis: (2) BRBPR (bright red blood per rectum): (3) HLD (hyperlipidemia): (4) GERD (gastroesophageal reflux disease): Patient is a 67 yr male with H/O HLD, GERD, history of colonoscopy in September with removal of 2 polyps which are noted on outpatient epic review to be hyperplastic, who presents to the ER with acute onset of abdominal pain within the past 24 hours and development of bright red blood per rectum x2 to episodes today. He is on baby aspirin but no other form of blood thinner. Colitis GI bleed/rectal bleed DD: Gastroenteritis/hemorrhoids/ischemic colitis --CT ABD: Mild left colon wall thickening with subtle pericolonic stranding. This favors a nonspecific colitis. Less likely, the findings could be related to underdistention. No bowel obstruction. No intraluminal contrast to suggest active GI bleed by CT. --Hold aspirin (plan to discontinue upon discharge given no clear indication) -- Empirically antibiotics--Cipro, Flagyl will be discontinued Check stool studies if with recurrence of diarrhea--no recurrence of diarrhea while hospitalized Monitor H&H and transfuse as needed Appreciate GI input Needs colonoscopy as outpatient Discussed with GI on 01/09/2023: Can discontinue antibiotics, hold aspirin for now, recommends outpatient colonoscopy. Tolerated low fiber diet Hemoglobin stable Plan to be discharged home today HLD -Patient is statin intolerant, continue Zetia GERD -Continue PPI DVT Px: Teds, SCDs CODE STATUS: Full code Disposition Home Total Time Total Time Spent Total Time Spent (In Minutes): 55 minutes Discharge Plan Discharge Items Patient Disposition: Home - Self-Care Reason For Visit: GI BLEED Discharge Diagnosis: GI bleed/rectal bleed Possible colitis Activity: Per Instructions section Exercise/Sports: Gradually increase as tolerated Non-emergency contact: Primary Care Provider and [employer] Judge Call non-emergency contact if: you have any medication questions, your symptoms worsen, your pain is concerning for you and you have a fever Follow-up/Referrals: Dianne Underwood MD [Primary Care Provider] - Diet: Low Fiber Addtl Attending Provider Instructions: Follow-up with your primary care physician in 1 week Follow-up with your wharf tender helper Dr. Aguero for outpatient colonoscopy Do not take group of medications belonging to NSAIDs group -can increase your risk for bleeding List Of these medications includes but not limited to: Aspirin Diclofenac Ibuprofen, Motrin, Advil Toradol,ketorolac Naproxen, Aleve, Naprosyn You can take Tylenol as needed for pain or fever When buying [id number] pain medications please consult with pharmacy if you are not sure regarding ingredients, as a lot of the pain medications have combination of NSAIDs and Tylenol. Seek immediate medical attention if your symptoms reoccur or worsen Please take all medications as instructed on discharge list below. Please call if you have any questions or problems. You can reach a [facility] hospitalist on duty at [facility] 24 hours a day by calling [phone] Pending Studies at Discharge: No Stand-Alone Forms: My [facility], Smoking Cessation Medications and DC Order Prescriptions: Continued omeprazole 20 mg capsule,delayed release(DR/EC) 20 mg PO QAM ezetimibe 10 mg tablet 10 mg PO QAM Discontinued aspirin 81 mg Tablet 81 mg PO QAM Discharge Orders: Discharge Order (Routine); Ordered 01/09/23 Ordered By: Michael Feldman Admission Data Admit Date/Time: 01/07/23 12:01 Attending Provider: Michael Feldman Admit Provider: Brandan Saenz Primary Care Provider: Dianne Underwood Other Providers: Danny Denton; Brandan Saenz
[2023-01-10] MEDS ORDERED: PANTOprazole 40 MG TAB PO SCH (09:00)
== END 2023-01-09 14:45 | disposition home or self-care (01) | DRG 392 ==
LOC: ED 08:15 → SUATTDRO 12:01 → 2N 12:01